=== PATIENT | male | born 1975 ===

== ENCOUNTER 2019-01-27 10:03 | Day surgery (SDC) | payer OTHER | END 2019-01-27 14:37 | disposition home or self-care (01) | LOC: AMB-ENDOS 10:03 | DX: D12.8 Benign neoplasm of rectum (principal); K64.1 Second degree hemorrhoids ==

== ENCOUNTER 2020-02-23 08:52 | Day surgery (SDC) | payer OTHER | END 2020-02-23 15:25 | disposition home or self-care (01) | LOC: AMB-ENDOS 08:52 | PROVIDERS: ATTEND Colon & Rectal Surgery | DX: K62.89 Other specified diseases of anus and rectum (principal); K64.1 Second degree hemorrhoids; Z20.828 Contact with and (suspected) exposure to other viral communicable diseases ==